=== PATIENT | female | born 1940 | race Caucasian/White ===

== ENCOUNTER 2018-05-10 13:01 | Outpatient (REF) | payer MEDICARE, SELFPAY ==
[2018-05-10 22:35] LABS: Abs Immature Grans 0.01 k/cumm (0.0-0.09); Absolute Basophil Count 0.03 k/cumm (0.0-0.2); Absolute Eosinophil Count 0.25 k/cumm (0.0-0.7); Absolute Lymphocyte Count 2.54 k/cumm (1.2-3.4); Absolute Monocyte Count 0.68 k/cumm (0.11-0.7); Absolute Neutrophil Count 3.59 k/cumm (1.2-6.7); Basophils % 0.4; Eosinophils % 3.5; HCT 44.9 % (36.0-46.0); HGB 14.6 g/dL (12.0-15.5); Immature Grans % 0.1; Lymphocytes % 35.8; Mean Corp. HGB Concentration 32.5 g/dL (32.0-36.0); Mean Corpuscular Hemoglobin 30.8 pg (27.0-33.0); Mean Corpuscular Volume 94.7 fL (80-95); Mean Platelet Volume 12.2 fL (8.0-11.0); Monocytes % 9.6; Neutrophils % 50.6; Platelet Count 192 x1000/uL (130-400); RBC 4.74 m/cumm (4.00-5.20); RBC Distribution Width 13.3 % (11.7-14.6)
[2018-05-10 22:55] LABS: BUN 9 mg/dL (7-18); CREATININE 0.93 mg/dL (0.55-1.02); Calcium 9.3 mg/dL (8.5-10.1); Chloride 103 mmol/L (98-107); Estimated GFR 58.61 (mL/min/1.73m2); Glucose 90 mg/dL (70-100); Potassium 4.5 mmol/L (3.5-5.1); Sodium 143 mmol/L (136-145)
== END 2018-05-10 13:21 ==
LOC: NCHCN 13:01
PROVIDERS: PCP Nurse Practitioner Family; Visit Provider Nurse Practitioner Family
DX: R42 Dizziness and giddiness (principal)
CPT/HCPCS: 80048; 85025

== ENCOUNTER 2018-09-28 00:17 | Outpatient (CLI) | payer MEDICARE, SELFPAY ==
--- NOTE | 2018-09-28 11:04 | DI.MAMMO_ITS ---
SYMPTOM/DIAGNOSIS: SCREENING, [facility], Z00.00 MAMMOGRAMS: Mammograms were interpreted according to the usual protocol including computer analysis with CAD system, tomosynthesis and C view imaging. Comparison is made with prior examinations. Breast density, category B. No suspicious masses or microcalcifications are seen. There has been no significant change compared to the prior examinations. IMPRESSION: No evidence for malignancy. Yearly mammography is recommended. Category 1. MQSA ASSESSMENT OF FINDINGS: Negative. Category 1. Patient will receive a letter notifying them of these results. BI-RADS category B. There are scattered areas of fibroglandular density.
== END 2018-09-28 00:37 ==
PROVIDERS: PCP Nurse Practitioner Family; Visit Provider Nurse Practitioner Family
DX: Z12.31 Encounter for screening mammogram for malignant neoplasm of breast (principal)
CPT/HCPCS: 77063; 77067

== ENCOUNTER 2019-02-01 17:54 | Outpatient (REF) | payer MEDICARE, SELFPAY ==
[2019-02-01 22:02] LABS: ALT 17 U/L (14-59); Anion Gap 8.5 mmol/L (3-11); BUN 10 mg/dL (7-18); CO2 30.5 mmol/L (21.0-32.0); CREATININE 0.92 mg/dL (0.55-1.02); Calcium 8.8 mg/dL (8.5-10.1); Chloride 103 mmol/L (98-107); Estimated GFR 59.19 (mL/min/1.73m2); Glucose 105 mg/dL (70-100); HDL Cholesterol 45 mg/dL (40-60); LDL CHOLESTEROL 84 mg/dL (<100); Potassium 4.3 mmol/L (3.5-5.1); Sodium 142 mmol/L (136-145)
[2019-02-01 22:23] LABS: Creatine Kinase 75 U/L (26-192)
== END 2019-02-01 18:14 ==
LOC: NCHCN 17:54
PROVIDERS: PCP Nurse Practitioner Family; Visit Provider Nurse Practitioner Family
DX: I10 Essential (primary) hypertension (principal); E78.5 Hyperlipidemia, unspecified; M19.90 Unspecified osteoarthritis, unspecified site
CPT/HCPCS: 80048; 80053; 82550; 83690; 83721; 83718; 84460; 85025

== ENCOUNTER 2019-07-12 15:45 | Outpatient (REF) | payer MEDICARE, SELFPAY ==
[2019-07-12 23:10] LABS: Anion Gap 9.3 mmol/L (3-11); BUN 11 mg/dL (7-18); CO2 30.7 mmol/L (21.0-32.0); CREATININE 1.01 mg/dL (0.55-1.02); Calcium 9.3 mg/dL (8.5-10.1); Chloride 103 mmol/L (98-107); Estimated GFR 53.15 (mL/min/1.73m2); Glucose 93 mg/dL (74-106); Potassium 4.3 mmol/L (3.5-5.1); Sodium 143 mmol/L (136-145)
== END 2019-07-12 16:05 ==
LOC: NCHCN 15:45
PROVIDERS: PCP Nurse Practitioner Family; Visit Provider Nurse Practitioner Family
DX: I10 Essential (primary) hypertension (principal)
CPT/HCPCS: 80048

== ENCOUNTER 2020-01-10 13:29 | Outpatient (REF) | payer MEDICARE, SELFPAY ==
[2020-01-10 19:56] LABS: ALT 15 U/L (14-59); AST 14 U/L (15-37); HDL Cholesterol 43 mg/dL (40-60); LDL CHOLESTEROL 68 mg/dL (<100)
[2020-01-10 20:17] LABS: Creatine Kinase 90 U/L (26-192)
== END 2020-01-10 13:49 ==
LOC: NCHCN 13:29
PROVIDERS: PCP Nurse Practitioner Family; Visit Provider Nurse Practitioner Family
DX: E78.5 Hyperlipidemia, unspecified (principal); I10 Essential (primary) hypertension
CPT/HCPCS: 82550; 83721; 83718; 84450; 84460

== ENCOUNTER 2020-01-24 07:50 | Emergency (ER) | payer MEDICARE, SELFPAY ==
[2020-01-24] VITALS (13 sets, daily range): BP systolic 134–183; BP diastolic 57–82; PULSE 94–116; RESP 17–22; TEMP 36.3–36.8; O2SAT 92–100
--- NOTE | 2020-01-24 08:15 | RT.EKG_ITS ---
APPROVED REPORT Exam: Resting ECG Patient Location: E HR:101 bpm ECG Measurements Heart Rate 101 AXIS MO 156 P 83 QRSd 121 QRS -48 QT 373 T 102 QTc 485 Conclusion Sinus tachycardia...rate> 99 Left bundle branch block...QRSd>120, broad/notched R
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
[2020-01-24] MEDS: ACETAMINOPHEN 1,000 MG/100 ML BTL 400 MG IVPB (08:34)
[2020-01-24] MEDS: Normal Saline 500 ML IV (08:34)
[2020-01-24 08:41] LABS: Abs Immature Grans 0.05 10^3/uL (0.0-0.06); Absolute Basophil Count 0.04 10^3/uL (0.0-0.2); Absolute Eosinophil Count 0.14 10^3/uL (0.0-0.7); Absolute Lymphocyte Count 1.76 10^3/uL (1.2-3.4); Absolute Monocyte Count 0.62 10^3/uL (0.1-0.8); Absolute Neutrophil Count 5.91 10^3/uL (1.2-6.7); Basophils % 0.5; Eosinophils % 1.6; HGB 13.7 g/dL (11.2-15.7); Immature Grans % 0.6; Lymphocytes % 20.7; MCH 29.9 pg (27.0-33.0); MCHC 31.1 % (32.0-36.0); MCV 96.1 fL (80-95); Monocytes % 7.3; Neutrophils % 69.3; Nucleated RBC 0 %; Platelet Count 174 10^3/uL (130-400); RBC 4.58 10^6/uL (3.93-5.22); RDW 12.4 % (11.7-14.6); RDW-SD 44.3 fL; WBC 8.52 10^3/uL (4.4-10.8)
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
[2020-01-24 08:53] LABS: PTT Activated 25.3 sec (21.0-31.4)
[2020-01-24 08:54] LABS: ALT 15 U/L (14-59); AST 24 U/L (15-37); Albumin 3.5 g/dL (3.4-5.0); Alkaline Phosphatase 87 U/L (46-116); Anion Gap 5.1 mmol/L (3-11); BUN 9 mg/dL (7-18); Bilirubin, Total 0.4 mg/dL (0.2-1.0); CO2 31.9 mmol/L (21.0-32.0); CREATININE 0.91 mg/dL (0.55-1.02); Chloride 103 mmol/L (98-107); Estimated GFR 59.79 (mL/min/1.73m2); Glucose 107 mg/dL (74-106); Lipase 64 U/L (73-393); Magnesium 2.2 mg/dL (1.8-2.4); Potassium 3.6 mmol/L (3.5-5.1); Sodium 140 mmol/L (136-145); Total Protein 6.8 g/dL (6.4-8.2); Troponin I < 0.05 ng/mL (<0.06)
[2020-01-24] MEDS: Omnipaque 350 MG/ML 100 ML BTL IJ (09:24)
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
[2020-01-24] MEDS: oxyCODONE 5 MG TAB PO (10:31)
== END 2020-01-24 12:00 | disposition home or self-care (01) ==
PROVIDERS: Emergency Provider Physician Assistant; PCP Nurse Practitioner Family
DX: S12.690A Other displaced fracture of seventh cervical vertebra, initial encounter for closed fracture (principal); S22.42XA Multiple fractures of ribs, left side, initial encounter for closed fracture; S20.212A Contusion of left front wall of thorax, initial encounter; R10.12 Left upper quadrant pain; R10.31 Right lower quadrant pain; M54.6 Pain in thoracic spine; M25.552 Pain in left hip; V43.52XA Car driver injured in collision with other type car in traffic accident, initial encounter; I10 Essential (primary) hypertension; H40.9 Unspecified glaucoma
CPT/HCPCS: 36415; 74177; 80053; 83690; 93005; 96361; 96365; 99285; 70450; 71260; 72125; 83735; 84484; 85025; 85610; 85730; 93010; J0131; J3490; L0120

== ENCOUNTER 2020-05-23 11:48 | Outpatient (REF) | payer MEDICARE, SELFPAY ==
[2020-05-23 15:41] LABS: Hemoglobin A1C 5.7 % (<5.7)
== END 2020-05-23 12:08 ==
LOC: NCHCN 11:48
PROVIDERS: PCP Nurse Practitioner Family; Visit Provider Nurse Practitioner Family
DX: R73.01 Impaired fasting glucose (principal)
CPT/HCPCS: 83036

== ENCOUNTER 2020-05-29 10:52 | Outpatient (RCR) | payer MEDICARE, SELFPAY ==
--- NOTE | 2020-05-29 12:45 | HOLTER_ITS ---
APPROVED REPORT Exam Type: HOLTER MONITOR APPLICATION Reason for Test: tachycardia Patient Location: O Conclusion This is a 24-hour Holter monitor ordered for indication of tachycardia. The patient was in normal sinus rhythm with majority of the recording with an average heart rate of 8 8 bpm. There were 5 episodes of supraventricular tachycardia with the longest lasting 3 beats. There were o ccasional (1.5%) PACs. There were no episodes of ventricular tachycardia and occasional (1.6%) PVCs. There were no episodes of atrial fibrillation, no pauses greater than 3 seconds and no evidence of hi gh degree heart block. There was 1 patient diary event which was associated with normal sinus rhythm.
== END 2020-06-03 23:59 | disposition home or self-care (01) ==
LOC: RT 10:52
PROVIDERS: PCP Nurse Practitioner Family; Visit Provider Nurse Practitioner Family
DX: R00.0 Tachycardia, unspecified (principal)
CPT/HCPCS: 93225; 93226

== ENCOUNTER 2020-06-04 09:03 | Outpatient (CLI) | payer MEDICARE, SELFPAY | END 2020-06-04 09:23 | PROVIDERS: PCP Nurse Practitioner Family; Referring Provider Nurse Practitioner Family; Visit Provider Internal Medicine Cardiovascular Disease | DX: R00.0 Tachycardia, unspecified (principal); I47.1 Supraventricular tachycardia; I49.1 Atrial premature depolarization | CPT/HCPCS: 93227 ==

== ENCOUNTER 2020-06-13 11:52 | Outpatient (REF) | payer MEDICARE, SELFPAY ==
[2020-06-13 16:41] LABS: Anion Gap 8.7 mmol/L (3-11); BUN 14 mg/dL (7-18); CO2 31.3 mmol/L (21.0-32.0); CREATININE 0.8 mg/dL (0.55-1.02); Calcium 9.5 mg/dL (8.5-10.1); Chloride 102 mmol/L (98-107); Glucose 107 mg/dL (74-106); Potassium 4.1 mmol/L (3.5-5.1); Sodium 142 mmol/L (136-145); TSH 0.56 uIU/mL (0.36-3.74)
[2020-06-14 04:42] LABS: Vitamin D 25 Total 13.4 ng/ml (30-100)
== END 2020-06-13 11:53 | disposition home or self-care (01) ==
LOC: NCHCN 11:52
PROVIDERS: PCP Nurse Practitioner Family; Visit Provider Nurse Practitioner Family
DX: I10 Essential (primary) hypertension (principal); R00.0 Tachycardia, unspecified; E55.9 Vitamin D deficiency, unspecified; S22.49XA Multiple fractures of ribs, unspecified side, initial encounter for closed fracture
CPT/HCPCS: 80048; 82306; 84443

== ENCOUNTER 2020-06-22 00:57 | Outpatient (CLI) | payer MEDICARE, SELFPAY ==
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
== END 2020-06-22 00:58 ==
LOC: DI 00:58
PROVIDERS: PCP Nurse Practitioner Family; Visit Provider Nurse Practitioner Family
DX: S22.42XD Multiple fractures of ribs, left side, subsequent encounter for fracture with routine healing (principal); R07.81 Pleurodynia; X58.XXXD Exposure to other specified factors, subsequent encounter
CPT/HCPCS: 99204; 71046; 71100

== ENCOUNTER 2020-06-22 10:00 | Outpatient (CLI) | payer MEDICARE, SELFPAY ==
--- NOTE | 2020-06-22 10:00 | RT.EKG_ITS ---
APPROVED REPORT Exam: Resting ECG Patient Location: O HR:105 bpm ECG Measurements Heart Rate 105 AXIS KS 162 P 86 QRSd 123 QRS -53 QT 362 T 97 QTc 479 Conclusion Sinus tachycardia...rate> 99 Left bundle branch block...QRSd>120, broad/notched R Baseline wander in lead(s) III,aVL
== END 2020-06-22 10:01 | disposition home or self-care (01) ==
LOC: DI.CARD 10:01
PROVIDERS: PCP Nurse Practitioner Family; Visit Provider Internal Medicine Cardiovascular Disease
DX: R00.0 Tachycardia, unspecified (principal); I44.7 Left bundle-branch block, unspecified
CPT/HCPCS: 93010

== ENCOUNTER 2020-06-28 00:59 | Outpatient (CLI) | payer MEDICARE, SELFPAY ==
--- NOTE | 2020-06-28 06:45 | DI.NM_ITS ---
APPROVED REPORT Exam: Pharmacologic Patient Location: Out-Patient Room/Bed: Stress Nurse: Sumaya Alonso RN Ordering Provider:ELLA REBOLLAR, Contact Number: BMI: 22.45 Baseline Rhythm: LBBB Indications: Tachycardia, SOB. Medical History Medical History: LBBB, HTN, HLD, Tobacco use, Bronchitis, Palpitations, Glaucoma Cardiac Medications: Pravastatin, Nitro, Metoprolol tartrate, Lisinopril, Aspirin, Allergies: Atorvastatin. Cardiac Risk Factors: HTN, Hyperlipidemia, Smoking (current) Previous Cardiac Procedures: None. Pretest Chest Pain Characteristics: None. Exercise History: Sedentary Lung Sounds: Diminished. Heart Sounds: Regular Stress Test Details Test: Pharmacologic stress testing performed using 0.4 mg of regadenoson per 5 mL given IV over 10 s econds. Reason for pharmacologic stress test: LBBB. Nuclear Acquisition: Rest Tc-99m/Stress Tc-99m 1 day Rest Isotope: Tc-99m Sestamibi. Dose: 9.7 Date: 06/28/2020 Injection Time: 0820 Stress Isotope: Tc-99m Sestamibi. Dose: 31.2 Date: 06/28/2020 Injection Time: 1000 HR Resting HR Supine: 69 bpm Max Heart Rate (APMHR): 142 bpm Target HR (85% APMHR): 120 bpm Max HR Achieved: 103 bpm % of APMHR: 72 BP ECG Resting ECG: Sinus Rhythm, LBBB Ectopy: None. Stress ECG: Sinus Tachycardia, LBBB ST Change: No significant ST segment changes noted Arrhythmia: None Recovery ECG: Sinus Rhythm, LBBB Recovery ST Change: No significant ST segment changes noted Recovery Arrhythmia: None Clinical Rate Pressure Product: 0 Stress ECG Conclusion 1. The electrocardiogram showed a left bundle branch block. Patient underwent pharmacologic stress w ith regadenoson. Electrocardiographically the test was nondiagnostic due to resting EKG abnormalitie s and inadequate heart rate. Peak heart rate was 72% of predicted for age. There were no dysrhythmi as Stress Test Summary STAGE HR BP Symptoms NOTES Supine 69 112/64 1 min post Lexiscan injection 82 118/68 Coughing. 3 min post Lexiscan injection 100 114/70 Headache. 6 min post Lexiscan injection 95 118/66 Symptoms resolved. MPI Conclusion Normal myocardial perfusion without evidence of ischemia or prior infarction. Calculated EF is 42%
[2020-06-28] MEDS: Regadenoson 0.4 MG/5 ML SYR IVP (09:48)
== END 2020-06-28 01:00 ==
LOC: DI 01:00
PROVIDERS: PCP Nurse Practitioner Family; Visit Provider Internal Medicine Cardiovascular Disease
DX: R00.0 Tachycardia, unspecified (principal); R06.02 Shortness of breath; R00.2 Palpitations; I10 Essential (primary) hypertension; E78.5 Hyperlipidemia, unspecified; Z72.0 Tobacco use
CPT/HCPCS: 78452; 93016; 93018; 93017; J2785

== ENCOUNTER → 2020-07-04 14:03 | Outpatient (CLI) | payer MEDICARE, SELFPAY ==
--- NOTE | 2020-07-04 12:03 | DI.CT_ITS ---
EXAM: CT HEAD WO CLINICAL HISTORY: HEAD INJURY Z87.828, FALL YESTERDAY HIT HEAD S.T. SWELLING, R/O ACUTE. TECHNIQUE: Imaging Protocol: Axial computed tomography images with coronal and sagittal reformatted images were created and reviewed COMPARISON: CT CT HEAD CERVICAL SPINE WO from 01/24/2020 FINDINGS: Ventricles and Extra axial spaces: Normal in size and morphology for the patient's age. Hemorrhage: None. Cerebral parenchyma: There are areas of decreased attenuation in the white matter most consistent wit h chronic microvascular ischemic change. No evidence of an acute territorial infarct. Midline shift: None. Brainstem/Cerebellum: Normal. Calvarium: Normal. Visualized Paranasal sinuses/Mastoids: Clear. Soft Tissues: Small scalp hematoma overlying the left parietal bone. IMPRESSION: 1. No acute intracranial process. 2. Small scalp hematoma overlying the left parietal bone. RADIATION DOSE DELIVERED: 600.63mGy.cm Total DLP DATA REPOSITORY: All CT scans at this facility are submitted to the National Radiology Data Registry (NRDR) Dose Index Registry (DIR) with the [employer] (ACR). RADIATION OPTIMIZATION: All CT scans at this facility use at least one of these dose optimization te chniques: automated exposure control; mA and/or kV adjustment per patient size (includes targeted exa ms where dose is matched to clinical indication); or iterative reconstruction.
== END ==
PROVIDERS: PCP Nurse Practitioner Family; Visit Provider Nurse Practitioner Family
DX: S00.03XA Contusion of scalp, initial encounter (principal); R22.0 Localized swelling, mass and lump, head
CPT/HCPCS: 70450

== ENCOUNTER → 2020-07-12 01:32 | Outpatient (CLI) | payer MEDICARE, SELFPAY ==
--- NOTE | 2020-07-12 11:37 | DI.US_ITS ---
APPROVED REPORT EXAM: Comprehensive 2D, Doppler, and color-flow Echocardiogram Patient Location: Out-Patient Charge Manager: Deepti Tang RDCS ([facility]) Other Information Study Quality: Technically Difficult. Technically limited study due to body habitus, smoker.. Conclusion This is a technically difficult study. Left Ventricle : The left ventricle is grossly normal size. Left ventricular systolic function is mil dly decreased. Unable to assess LV wall thickness. LVEF is 40-45%. Right Ventricle : Right ventricle is grossly normal in size. Right ventricular systolic function is g rossly normal. The RVSP is 18.1 mmHg. Atria : The left atrium size is normal. The right atrium size is normal. Right atrium is borderline d ilated. Mitral Valve : Mild mitral annular calcification. Mild mitral regurgitation. No evidence of mitral va lve stenosis. Great Vessels : The aortic root is not well visualized. Ascending aorta is not well visualized. Aorti c arch is not well visualized. IVC is normal in size and collapses >50% with inspiration. Please see remainder of study for further details. Wall motion Left Ventricle The left ventricle is grossly normal size. Left ventricular systolic function is mildly decreased. Un able to assess LV wall thickness. There is global hypokinesis of the left ventricle. There is no vent ricular septal defect visualized. LVEF is 40-45%. Right Ventricle Right ventricle is grossly normal in size. Right ventricular systolic function is grossly normal. The RVSP is 18.1 mmHg. Atria The left atrium size is normal. The right atrium size is normal. Right atrium is borderline dilated. The interatrial septum is intact with no evidence for an atrial septal defect. Aortic Valve Aortic valve is trileaflet. The aortic valve is not well visualized. There is no aortic valvular sten osis. No aortic regurgitation is present. Mitral Valve Mild mitral annular calcification. No evidence of mitral valve stenosis. Mild mitral regurgitation. Tricuspid Valve The tricuspid valve is normal in structure. There is no tricuspid valve stenosis. Trace tricuspid reg urgitation. Pulmonic Valve Pulmonic valve is not well visualized. There is no pulmonic valvular stenosis. There is no pulmonic v alvular regurgitation. Great Vessels The aortic root is not well visualized. Ascending aorta is not well visualized. Aortic arch is not we ll visualized. IVC is normal in size and collapses >50% with inspiration. Pericardium There is no pericardial effusion. 2D Dimensions RA Area A4C 9.37 cm2 LV Vol A2C d MOD 74.9 mL RA Vol/ BSA A4C s A-L 13.4 mL/m2 LV Vol A4C d MOD 61.3 mL LVEF ([place]) 44.01 % F: 54 - 74 LA vol/ BSA A2C s A-L 24.8 mL/m2 LV Volume 58.50 mL F: 46 - 106 LA vol/ BSA A4C s A-L 15.2 mL/m2 LV Volume Index 40.06 mL/m2 F: 29 - 61 LA Vol/ BSA Biplane s A-L 20.5 mL/m2 LV Vol Biplane MOD 69.4 mL LA Area A4C s MOD 10.09 cm2 LA Area A2C s MOD 13.61 cm2 LV EF A4C MOD 41.0 % LV EF A2C MOD 45.3 % LV EF Biplane MOD 44.0 % SV 30.56 mL SV Index 20.92 mL/m2 LV Diastology E/A Ratio 0.6 MV E Vmax 0.67 (0.4-1.3 m/s) MV A Vmax 1.10 (0.4-1.3 m/s) MV E/A Ratio 0.59 Aortic Valve LVOT Vmax 0.74 m/s LVOT Mean Michael. 0.48 m/s LVOT Peak Grad 2.2 mmHg LVOT Mean Grad 1.1 mmHg LVOT VTI 0.165 m AoV Vmax 1.11 m/s Velocity Ratio 0.66 AoV Mean Michael. 0.80 m/s AoV Peak Grad 5.0 mmHg AoV Mean Grad 2.8 mmHg AoV VTI 0.245 m Mitral Valve MV DT 304 (160-240 msec) MV PHT 88 msec MV Area PHT 2.50 cm2 MV VTI 0.293 m MV VTI Annulus 0.296 m Pulmonary Valve PV Vmax 0.88 (0.5-1.5 m/s) RVOT Peak Gr. 2.46 mmHg PV Peak Grad 3.1 mmHg RVOT Mean Gr. 1.10 mmHg PV Mean Grad 1.9 mmHg RVOT VTI 0.141 m PV VTI 0.189 m RVOT Vmax 0.78 m/s Tricuspid Valve TR Peak Grad 15.1 mmHg TR Vmax 1.94 m/s RA Pressure 3.00 mmHg RVSP (TR) 18.1 mmHg
== END ==
PROVIDERS: PCP Nurse Practitioner Family; Visit Provider Internal Medicine Cardiovascular Disease
DX: R00.0 Tachycardia, unspecified (principal); I34.0 Nonrheumatic mitral (valve) insufficiency
CPT/HCPCS: 93306

== ENCOUNTER → 2020-07-24 13:56 | Outpatient (BNVA) | payer MEDICARE, SELFPAY | PROVIDERS: PCP Nurse Practitioner Family; Referring Provider Nurse Practitioner Family; Visit Provider Internal Medicine Cardiovascular Disease | DX: I42.8 Other cardiomyopathies (principal); I44.7 Left bundle-branch block, unspecified; R06.02 Shortness of breath; I10 Essential (primary) hypertension | CPT/HCPCS: 99214; 99213 ==

== ENCOUNTER 2020-09-10 19:17 | Outpatient (REF) | payer MEDICARE, SELFPAY ==
[2020-09-10 17:13] LABS: Vitamin D 25 Total 16.1 ng/mL (30-100)
== END 2020-09-10 19:18 | disposition home or self-care (01) ==
LOC: NCHCN 19:17
PROVIDERS: PCP Nurse Practitioner Family; Visit Provider Nurse Practitioner Family
DX: E55.9 Vitamin D deficiency, unspecified (principal)
CPT/HCPCS: 82306

== ENCOUNTER 2020-12-10 11:31 | Outpatient (REF) | payer MEDICARE, SELFPAY ==
[2020-12-10 20:41] LABS: ALT 14 U/L (14-59); AST 16 U/L (15-37); Anion Gap 4.5 mmol/L (3-11); BUN 9 mg/dL (7-18); CO2 33.5 mmol/L (21.0-32.0); CREATININE 0.8 mg/dL (0.55-1.02); Calcium 9.4 mg/dL (8.5-10.1); Chloride 106 mmol/L (98-107); Glucose 97 mg/dL (74-106); HDL Cholesterol 43 mg/dL (40-60); LDL CHOLESTEROL 77 mg/dL (<100); Potassium 4.6 mmol/L (3.5-5.1); Sodium 144 mmol/L (136-145)
[2020-12-10 20:54] LABS: Creatine Kinase 101 U/L (26-192)
[2020-12-10 21:34] LABS: Vitamin D 25 Total 28.4 ng/mL (30-100)
== END 2020-12-10 11:32 | disposition home or self-care (01) ==
LOC: NCHCN 11:31
PROVIDERS: PCP Nurse Practitioner Family; Visit Provider Nurse Practitioner Family
DX: E55.9 Vitamin D deficiency, unspecified (principal); E78.5 Hyperlipidemia, unspecified
CPT/HCPCS: 80048; 82306; 82550; 83721; 83718; 84450; 84460

== ENCOUNTER 2020-12-27 04:08 | Outpatient (CLI) | payer MEDICARE, SELFPAY ==
[2020-12-27] MEDS: Inhaler, Assist Device 1 EACH MC (11:03)
[2020-12-27] MEDS: Albuterol HFA 18 GM 200 PUFF INH IH (11:03)
--- NOTE | 2020-12-28 11:33 | W.PFT ---
Date of service: 12/27/20 Time of Service: 10:09 Pulmonary Function Test Result Requesting Provider Ana Paula Miller Interpretation Spirometry: There is severe airflow obstruction. Low FVC is likely due to extreme airflow limitation. There was a 13 and 14% increase in FEV1 and FVC respectively with administration of a bronchodilator dilator, but does not meet criteria for a significant bronchodilator effect (less than a 200cc increase). Lung Volumes: There is evidence of hyperinflation and air trapping. Diffusion Capacity: There is a reduced diffusion. Airway Pressure: There is significantly increased airways resistance. Impression There is severe airflow limitation signs of air trapping and hyperinflation along with a reduced diffusion. Although this patient does not meet criteria for a significant bronchodilator effect due to lack of a 200 cc increase in FEV1 or FVC this has been likely limited by an extremely low FVC. In the correct clinical context these PFTs would be consistent with emphysematous COPD. Note: When compared to 05/14/2011, the FEV1 and FVC are significantly decreased and there is more air trapping and hyperinflation when compared to the previous report. Clinical Correlation therefore is recommended.
== END 2020-12-27 04:09 | disposition home or self-care (01) ==
LOC: RT 04:09
PROVIDERS: PCP Nurse Practitioner Family; Visit Provider Nurse Practitioner Family
DX: J44.9 Chronic obstructive pulmonary disease, unspecified (principal)
CPT/HCPCS: 94060; 94726; 94729

== ENCOUNTER 2021-01-01 01:22 | Outpatient (CLI) | payer MEDICARE, SELFPAY ==
--- NOTE | 2021-01-01 | DI.MAMMO_ITS ---
Exam(s) MAMMO SCREENING EXAM: MAMMO SCREENING CLINICAL HISTORY: SCREENING, Z12.39 TECHNIQUE: Bilateral full field digital CC and MLO mammographic images were obtained with 3D tomosyn thesis and utilizing computer aided detection (CAD). COMPARISON: Available for comparison. FINDINGS: Masses/Architectural Distortion: None seen. Microcalcifications: No suspicious pleomorphic-type are seen. Skin Thickening/Nipple Retraction: None. IMPRESSION: 1. No significant interval change with no specific features of malignancy noted. 2. Unless there is more urgent need, screening mammography is recommended, as per [employer] guidelines. BI-RADS Category 2 - Benign Findings Breast Density - Category B - Scattered areas of fibroglandular density Breast density category C or D implies that the patient has dense breast tissue. Dense breast tissue is very common and is not abnormal but dense breast tissue can make it harder to find cancer on a ma mmogram. Also, dense breast tissue may increase their breast cancer risk. This information about the result of the mammogram report was provided to the patient to raise their awareness. Use this report when you speak with the patient about their risks for breast cancer, which includes their family hist ory. At that time, you may recommend for more screening tests (Ultrasound or MRI) as they might be us eful based on their risk. A negative radiographic report should not delay biopsy if a dominant or clinically suspicious mass is present. Up to ten percent of cancers are not identified on mammography. A negative report may reinforce clinical impression. Adenosis and dense breasts may obscure an underlying neoplasm. False positive reports average 6 to 10%. Patient will receive a letter notifying them of these results.
== END 2021-01-01 01:42 ==
PROVIDERS: PCP Nurse Practitioner Family; Visit Provider Nurse Practitioner Family
DX: Z12.31 Encounter for screening mammogram for malignant neoplasm of breast (principal)
CPT/HCPCS: 77063; 77067

== ENCOUNTER 2021-01-09 14:38 | Outpatient (REF) | payer MEDICARE, SELFPAY ==
[2021-01-09 20:42] LABS: Anion Gap 5.9 mmol/L (3-11); BUN 8 mg/dL (7-18); CO2 32.1 mmol/L (21.0-32.0); CREATININE 0.9 mg/dL (0.55-1.02); Calcium 9.1 mg/dL (8.5-10.1); Chloride 103 mmol/L (98-107); Glucose 92 mg/dL (74-106); Potassium 4.3 mmol/L (3.5-5.1); Sodium 141 mmol/L (136-145)
== END 2021-01-09 14:39 | disposition home or self-care (01) ==
LOC: NCHCN 14:38
PROVIDERS: PCP Nurse Practitioner Family; Referring Provider Nurse Practitioner Family; Visit Provider Nurse Practitioner Family
DX: I10 Essential (primary) hypertension (principal)
CPT/HCPCS: 80048

== ENCOUNTER 2021-01-15 03:32 | Outpatient (CLI) | payer MEDICARE, SELFPAY | END 2021-01-15 03:33 | disposition home or self-care (01) | LOC: RT 03:33 | PROVIDERS: PCP Nurse Practitioner Family; Visit Provider Student in an Organized Health Care Education/Training Program | DX: J44.9 Chronic obstructive pulmonary disease, unspecified (principal) | CPT/HCPCS: 94618; G0237 ==

== ENCOUNTER 2021-01-16 13:10 | Outpatient (REF) | payer MEDICARE, SELFPAY ==
[2021-01-16 21:33] LABS: Anion Gap 5.3 mmol/L (3-11); BUN 16 mg/dL (7-18); CO2 34.7 mmol/L (21.0-32.0); Chloride 99 mmol/L (98-107); Estimated GFR 53.48 (mL/min/1.73m2); Glucose 92 mg/dL (74-106); Potassium 4.3 mmol/L (3.5-5.1); Sodium 139 mmol/L (136-145)
== END 2021-01-16 13:11 | disposition home or self-care (01) ==
LOC: NCHCN 13:10
PROVIDERS: PCP Nurse Practitioner Family; Visit Provider Nurse Practitioner Family
DX: I10 Essential (primary) hypertension (principal)
CPT/HCPCS: 80048

== ENCOUNTER 2021-01-22 00:20 | Outpatient (CLI) | payer MEDICARE, SELFPAY ==
--- NOTE | 2021-01-22 07:15 | DI.CTLCSR_ITS ---
Exam(s) CT CHEST LUNG CANCER SCREEN EXAM: CT CHEST LUNG CANCER SCREEN CLINICAL HISTORY: Screening for lung cancer,CURRENT SMOKER,F17.210 TECHNIQUE: Imaging Protocol: Axial computed tomography images with coronal and sagittal reformatted images were created and reviewed COMPARISON: CT CT CHEST/ABD/PEL W from 01/24/2020 FINDINGS: Tracheobronchial tree: Patent where visualized. Mediastinum and Rosalinda: No dominant adenopathy or fluid collection. Small hiatal hernia. Pulmonary parenchyma: No consolidation or dominant measurable mass. No architectural distortion. Lung Nodules: None. Pleura: No effusion or pneumothorax. Heart: The heart is not dilated. Mild coronary artery calcification. No pericardial effusion. Calci fication of the mitral valve. Aorta: Thoracic aorta non-dilated.Moderate atherosclerosis. Upper abdomen: Unremarkable. Bones: Within normal limits. Mild reverse S-type thoracolumbar scoliosis. Soft Tissues: Unremarkable. IMPRESSION: No pulmonary nodules. Lung RADS Cat 1 - Negative: No nodules and definitely benign nodules Lung-RADS 1.0 CATEGORIES: Category 0 - Prior chest CT exam(s) being located for comparison. Category 1 - Annual screening in 12 months. No nodules or definitely benign nodules. Category 2 - Annual screening in 12 months. Benign appearance. Nodules with low likelihood of becomin g active cancer. Category 3 - 6-month follow-up. Probably benign. Short-term follow-up suggested. Nodules with low lik elihood of becoming active cancer. Category 4A - 3-month follow-up and CT/PET if >8 mm in size. Suspicious finding. Findings which requi re additional testing. Category 4B - Findings which require additional testing and tissue sampling. Modifier S- Potentially clinically significant findings (non lung cancer) RADIATION DOSE DELIVERED: 68.72mGy.cm Total DLP CTDIvol DATA REPOSITORY: All CT scans at this facility are submitted to the National Radiology Data Registry (NRDR) Dose Index Registry (DIR) with the [employer] (ACR). RADIATION OPTIMIZATION: All CT scans at this facility use at least one of these dose optimization te chniques: automated exposure control; mA and/or kV adjustment per patient size (includes targeted exa ms where dose is matched to clinical indication); or iterative reconstruction.
== END 2021-01-22 00:40 ==
PROVIDERS: PCP Nurse Practitioner Family; Visit Provider Student in an Organized Health Care Education/Training Program
DX: F17.210 Nicotine dependence, cigarettes, uncomplicated (principal); Z12.2 Encounter for screening for malignant neoplasm of respiratory organs
CPT/HCPCS: 71271

== ENCOUNTER 2021-08-12 19:56 | Outpatient (REF) | payer MEDICARE, SELFPAY ==
[2021-08-12 13:58] LABS: Abs Immature Grans 0.02 10^3/uL (0.0-0.06); Absolute Basophil Count 0.06 10^3/uL (0.0-0.2); Absolute Lymphocyte Count 2.72 10^3/uL (1.2-3.4); Absolute Monocyte Count 0.92 10^3/uL (0.1-0.8); Absolute Neutrophil Count 6.22 10^3/uL (1.2-6.7); Basophils % 0.6; Eosinophils % 2.9; HCT 39.3 % (36.0-46.0); HGB 12.6 g/dL (11.2-15.7); Immature Grans % 0.2; Lymphocytes % 26.6; MCH 31.7 pg (27.0-33.0); MCHC 32.1 % (32.0-36.0); Neutrophils % 60.7; Nucleated RBC 0 %; Platelet Count 211 10^3/uL (130-400); RBC 3.97 10^6/uL (3.93-5.22); RDW 11.9 % (11.7-14.6); RDW-SD 44.1 fL; WBC 10.24 10^3/uL (4.4-10.8)
[2021-08-12 14:02] LABS: ESR 20 mm/hr (0-30)
[2021-08-12 14:12] LABS: Hemoglobin A1C 5.9 % (<5.7)
[2021-08-12 14:56] LABS: ALT 17 U/L (14-59); AST 14 U/L (15-37); Albumin 3.6 g/dL (3.4-5.0); Alkaline Phosphatase 81 U/L (46-116); Anion Gap 5.8 mmol/L (3-11); BUN 21 mg/dL (7-18); Bilirubin, Total 0.4 mg/dL (0.2-1.0); C-Reactive Protein 0.08 mg/dL (0.0-0.3); CO2 32.2 mmol/L (21.0-32.0); CREATININE 1.4 mg/dL (0.55-1.02); Calcium 9.1 mg/dL (8.5-10.1); Chloride 98 mmol/L (98-107); Estimated GFR 36.27 (mL/min/1.73m2); Glucose 95 mg/dL (74-106); Potassium 4.2 mmol/L (3.5-5.1); Sodium 136 mmol/L (136-145); TSH 0.73 uIU/mL (0.36-3.74); Total Protein 6.6 g/dL (6.4-8.2)
[2021-08-14 12:27] LABS: IgA 140 mg/dL (85-499); Interpretation (See Note); Tissue Transglutaminase IgA <1.2 U/mL (<4.0)
== END 2021-08-12 19:57 | disposition home or self-care (01) ==
LOC: NCHCN 19:56
PROVIDERS: PCP Nurse Practitioner Family; Visit Provider Nurse Practitioner Family
DX: R19.7 Diarrhea, unspecified (principal); R63.4 Abnormal weight loss
CPT/HCPCS: 80053; 82784; 83516; 85652; 83036; 84443; 85025; 86140

== ENCOUNTER → 2021-08-20 12:59 | Outpatient (BNVA) | payer MEDICARE, SELFPAY | PROVIDERS: PCP Nurse Practitioner Family; Referring Provider Nurse Practitioner Family; Visit Provider Internal Medicine Cardiovascular Disease | DX: J43.2 Centrilobular emphysema (principal); I44.7 Left bundle-branch block, unspecified; I42.8 Other cardiomyopathies | CPT/HCPCS: 99213 ==

== ENCOUNTER 2021-09-24 11:37 | Emergency (ER) | payer MEDICARE, SELFPAY ==
[2021-09-24] VITALS (29 sets, daily range): BP systolic 80–171; BP diastolic 40–107; PULSE 66–135; RESP 11–21; TEMP 37; O2SAT 93–99
--- NOTE | 2021-09-24 11:45 | RT.EKG_ITS ---
APPROVED REPORT Exam: Resting ECG Reason for Exam: tachycardia, weakness Patient Location: E HR:71 bpm ECG Measurements Heart Rate 71 AXIS SC 136 P 32 QRSd 142 QRS -36 QT 466 T 85 QTc 506 Conclusion Sinus rhythm...normal P axis, V-rate 60- 99 Left bundle branch block...QRSd>120, broad/notched R
--- NOTE | 2021-09-24 12:15 | DI.CT_ITS ---
Exam(s) CT ABDOMEN PELVIS WO EXAM: CT ABDOMEN PELVIS WO INDICATION: melena, diarrhea x 2mo, fatigue. COMPARISON: CT CT CHEST/ABD/PEL W from 01/24/2020 TECHNIQUE: FINDINGS: CT examination of the abdomen and pelvis was performed with oral contrast only. Images obtained through the lung bases are unremarkable. The liver is unremarkable in appearance. Gallbladder and bile ducts are CT normal. Pancreas appears normal. Spleen is unremarkable in appearance. Adrenals appear normal. The kidneys are unremarkable with no evidence of hydronephrosis, nephrolithiasis, or renal mass.. Ur inary bladder unremarkable. Abdominal aorta is of normal diameter and no major vascular abnormality is seen. No abdominal wall hernia. No abdominal or pelvic adenopathy. PHOTOCOPIER TECHNICIAN structures appear intact. Appendix is normal. No evidence of diverticulitis or bowel obstruction. IMPRESSION: Negative CT examination of the abdomen and pelvis. RADIATION DOSE DELIVERED: 654.18mGy.cm Total DLP 654.18mGy.cm Total DLP !Error CTDIvol RADIATION OPTIMIZATION: All CT scans at this facility use at least one of these dose optimization te chniques: automated exposure control; mA and/or kV adjustment per patient size (includes targeted exa ms where dose is matched to clinical indication); or iterative reconstruction.
--- NOTE | 2021-09-24 12:36 | ED.GENADUL_ITS ---
Discharge Plan Disposition Patient Disposition: HOME Condition: Stable Discharge Details Clinical Impression: Hypovolemia, Diarrhea, Acute kidney injury Primary Care Provider: Ana Paula Miller ED Provider: Rc Nguyen Home Meds and New Rx's Prescriptions: Continued lisinopril-hydrochlorothiazide 20-25 mg tablet 1 tab PO DAILY omeprazole 20 mg capsule,delayed release(DR/EC) 20 mg PO DAILY atorvastatin 10 mg tablet 10 mg PO DAILY ferrous sulfate 325 mg (65 mg iron) tablet 325 mg PO DAILY acetaminophen-codeine 300-30 mg tablet 1 tab PO QHS PRN nitroglycerin [Nitrostat] 0.4 mg tablet, sublingual 0.4 mg sublingual Q5M PRN Rx Instructions: do not exceed 3 doses per episode acetaminophen [Tylenol Extra Strength] 500 mg tablet 500 mg PO Q6H PRN olodaterol 2.5 mcg/actuation mist 2 inh inhalation DAILY metoprolol succinate 25 mg tablet extended release 24 hr 25 mg PO .nightly Qty: 90 3RF Stiolto Respimat 2.5-2.5 mcg/actuation mist See Rx Instructions .ROUTE .COMPLEX Qty: 4 12RF Dose Instruction: INHALE 2 PUFFS BY MOUTH DAILY Rx Instructions: INHALE 2 PUFFS BY MOUTH DAILY buspirone 10 MG tablet 10 mg PO TID aspirin [Aspirin Low-Strength] 81 MG tablet,chewable 81 mg PO DAILY albuterol sulfate [Ventolin HFA] 200 PUFF HFA aerosol inhaler 200 puff Inhalation .Q4-6H PRN travoprost [Travatan Z] 2.5 ML drops 1 drp Ophthalmic HS dorzolamide 10 ML drops 1 drp Ophthalmic BID Held spironolactone 25 mg tablet 12.5 mg PO DAILY Qty: 90 3RF Hold Instructions: Resume on 10/01/21. hold until cleared by doctor Discharge Instructions Instructions: Dehydration (ED), Chronic Diarrhea (ED) Additional Instructions: Please drink plenty of fluid to stay hydrated. Please follow-up with gastroenterology as directed by your primary care physician. Please follow-up with your primary care physician. Call tomorrow to schedule timely follow-up. Return to the emergency [facility] immediately for any worsening or new concerning symptoms. Referrals: Ana Paula iMller [Primary Care Provider] - Discharge Data Discharge Date/Time-TO BE ENTERED AT DEPARTURE: 09/24/21 17:27 Medical Decision Making 1240 --81-year-old female chronic smoker, COPD,here with generalized weakness, diarrhea times months, has had melena with guaiac positive stool weeks ago. Patient was seen at primary care physician this morning and was found to be hypotensive. Patient is currently normotensive. She does appear cachectic and dehydrated. Consider electrolyte abnormalities. Plan to give IV fluid bolus. Given chronic diarrhea and guaiac positive stool a few weeks ago, consider intra-abdominal process including colitis and malignancy. Patient is tender left lower quadrant. Plan to obtain CT abdomen pelvis with for acute surgical process. -- CT the abdomen pelvis was interpreted by radiology: Negative. -- Labs reviewed and BRUCE noted with creatinine 2.3. BUN significantly elevated. These findings are likely related to hypovolemia. Patient was given initial IV fluid bolus 500 mL. We will continue additional 1 L of IV fluid bolus and reassess chemistry. -- Patient was given initial IV NS bolus and labs repeated and has had improvement in creatinine. Plan for continued oral rehydration and follow-up with PCP and gastroenterology as directed. Patient was reassessed and feeling much better. Able to ambulate. Hemodynamically stable. Usual customary discharge instructions reviewed with patient. I will have her hold spironolactone over the next week until able to be reassessed by PCP. HPI General Mode of arrival: ambulatory . Date/Time Provider Initiated Documentation: 09/24/21 11:51 . Limitations to Documentation: no limitations . Information obtained by: patient . HPI Narrative: 81-year-old female with history of nicotine dependence, COPD, left bundle branch block, presents from primary care clinic with concerns for generalized weakness and hypotension today in clinic. Patient was found to be guaiac +6 weeks ago and was referred to gastroenterology and unfortunately could not arrange for rotation. She notes she has had black stool in the past but currently stool is yellow. She does note she is been suffering from fairly persistent diarrhea over the past few months. She does note some associated intermittent abdominal discomfort. Patient denies fever or cough. She is not vaccinated against COVID. Patient notes she has not been eating or drinking as much as usual. Related Data Home Medications Medication Instructions Recorded Confirmed buspirone 10 mg tablet 10 mg PO TID 12/11/14 09/24/21 albuterol sulfate 90 mcg/actuation 200 puff inhalation .Q4-6H PRN 05/30/16 09/24/21 aerosol inhaler (Ventolin HFA) aspirin 81 mg chewable tablet 81 mg PO DAILY 05/30/16 09/24/21 (Aspirin Low-Strength) dorzolamide 2 % eye drops 1 drp ophthalmic (eye) BID 05/30/16 09/24/21 travoprost 0.004 % eye drops 1 drp ophthalmic (eye) HS 05/30/16 09/24/21 (Travatan Z) nitroglycerin 0.4 mg sublingual 0.4 mg sublingual Q5M PRN 05/31/20 09/24/21 tablet (Nitrostat) spironolactone 25 mg tablet 12.5 mg PO DAILY #90 tabs 09/11/20 09/24/21 acetaminophen 500 mg tablet 500 mg PO Q6H PRN 12/12/20 09/24/21 (Tylenol Extra Strength) olodaterol 2.5 mcg/actuation mist 2 inh inhalation DAILY 12/12/20 09/24/21 for inhalation metoprolol succinate 25 mg 25 mg PO .nightly #90 tabs 08/05/21 09/24/21 tablet,extended release 24 hr tiotropium 2.5 mcg-olodaterol 2.5 See Rx Instructions .Route 08/07/21 09/24/21 mcg/actuation mist for inhalation .COMPLEX #4 grams (Stiolto Respimat) acetaminophen 300 mg-codeine 30 mg 1 tab PO QHS PRN 08/20/21 09/24/21 tablet atorvastatin 10 mg tablet 10 mg PO DAILY 08/20/21 09/24/21 ferrous sulfate 325 mg (65 mg 325 mg PO DAILY 08/20/21 09/24/21 iron) tablet lisinopril 20 1 tab PO DAILY 08/20/21 09/24/21 mg-hydrochlorothiazide 25 mg tablet omeprazole 20 mg capsule,delayed 20 mg PO DAILY 08/20/21 09/24/21 release Previous Rx's Medication Instructions Recorded spironolactone 25 mg tablet 12.5 mg PO DAILY #90 tabs 09/11/20 metoprolol succinate 25 mg 25 mg PO .nightly #90 tabs 08/05/21 tablet,extended release 24 hr tiotropium 2.5 mcg-olodaterol 2.5 See Rx Instructions .Route 08/07/21 mcg/actuation mist for inhalation .COMPLEX #4 grams (Stiolto Respimat) Allergies Allergy/AdvReac Type Severity Reaction Status Date / Time fluticasone Allergy Intermediate Verified 08/20/21 13:15 [From Flovent HFA] atorvastatin [From Lipitor] Allergy Verified 08/20/21 13:15 General Stated Complaint: GI Bleed HUONG: 2 Review of Systems All systems reviewed & are unremarkable except as noted in HPI and below Constitutional Constitutional: Reports fatigue, Denies fever(s), Reports lethargy and Reports weakness Respiratory Respiratory: Denies cough Neurologic Neurologic: Reports weakness Endocrine Endocrine: Reports fatigue PFSH All Active Problems (Updated 09/24/21 @ 17:11 by Rc Nguyen MD) Hypovolemia (Acute) Diarrhea (Acute) Acute kidney injury (Acute) Nicotine dependence, cigarettes, uncomplicated (Acute) COPD (chronic obstructive pulmonary disease) (Chronic) LBBB (left bundle branch block) (Acute) Shortness of breath (Acute) Tachycardia (Acute) Medical History Anxiety COPD (chronic obstructive pulmonary disease) Glaucoma, left eye HTN (hypertension) (~12/12/20) Hx of hyperlipidemia Neck pain Nonischemic cardiomyopathy Osteoarthritis Shoulder pain Vitamin D deficiency Surgical History History of bilateral tubal ligation History of tonsillectomy Social History Smoking/Tobacco Use Status: Current every day Smoking risk assessment performed?: Yes Alcohol Intake: never Drug use: Never Substance use type: does not use Do you feel safe at home: Yes Do you feel safe in your relationship?: Yes Exam Const General: cooperative and no acute distress Nutritional Appearance: cachectic Orientation: alert and awake HENMT Mouth: mucous membranes dry Throat: posterior oropharynx normal Eyes Conjunctivae: normal conjunctivae Sclera: normal sclerae Neck Neck: trachea midline and supple Resp Auscultation: clear to auscultation bilaterally, no rales, no rhonchi and no wheezes Cardio Rate: regular rate and not tachycardic Rhythm: regular rhythm GI Palpation: soft, not firm, no guarding, no masses, not rigid and tender in the LLQ Skin General skin exam: no rashes or lesions noted Neuro General: patient alert, patient awake, patient oriented x3 and tone normal Extrem General: no edema Psych Appearance: grossly normal Mental Status: mental status grossly normal Course Vital Signs Vital signs: Vital Signs Pulse 100 H 09/24/21 11:39 Respiratory Rate 18 09/24/21 11:39 Blood Pressure 131/40 L 09/24/21 11:39 Pulse Oximetry 95 09/24/21 11:39 Pulse 71 09/24/21 11:59 Pulse 92 H 09/24/21 11:59 Respiratory Rate 17 09/24/21 11:59 Blood Pressure 112/56 L 09/24/21 11:59 Blood Pressure Mean 66 09/24/21 11:59 Blood Pressure Position Supine 09/24/21 11:39 Pulse Oximetry 98 09/24/21 11:59 Oxygen Delivery Method Room Air 09/24/21 11:39 Oxygen Flow Rate 0 09/24/21 11:39 Lab/Test Results Lab/Test Results: Laboratory Tests Range/Units 09/24/21 09/24/21 09/24/21 11:52 11:52 11:52 WBC Cancelled RBC Cancelled Hgb Cancelled Hct Cancelled MCV Cancelled MCH Cancelled MCHC Cancelled RDW Cancelled Plt Count Cancelled MPV Cancelled Immature Gran % Cancelled Neutrophils % Cancelled Band Neutrophils % Cancelled Lymphocytes % Cancelled Atypical Lymphs % Cancelled Monocytes % Cancelled Eosinophils % Cancelled Basophils % Cancelled Metamyelocytes % Cancelled Myelocytes % Cancelled Promyelocytes % Cancelled Other Cells % Cancelled Nucleated RBC % Cancelled Absolute Neutrophils Cancelled Absolute Lymphocytes Cancelled Absolute Monocytes Cancelled Absolute Eosinophils Cancelled Absolute Basophils Cancelled RBC Morphology Cancelled Polychromasia Cancelled Hypochromasia Cancelled Poikilocytosis Cancelled Basophilic Stippling Cancelled Anisocytosis Cancelled Microcytosis Cancelled Macrocytosis Cancelled Spherocytes Cancelled Tear Drop Cells Cancelled Ovalocytes Cancelled Stomatocytes Cancelled [place] Bodies Cancelled Frederic Cells/Echinocytes Cancelled Acanthocytes (Spur) Cancelled Schistocytes Cancelled Sodium Cancelled Potassium Cancelled Chloride Cancelled Carbon Dioxide Cancelled Anion Gap Cancelled BUN Cancelled Creatinine Cancelled Estimated GFR/1.73 m2 Cancelled Glucose Cancelled Calcium Cancelled Total Bilirubin Cancelled AST Cancelled ALT Cancelled Alkaline Phosphatase Cancelled Troponin I Cancelled Total Protein Cancelled Albumin Cancelled Patient ABO/Rh Cancelled
[2021-09-24 12:41] LABS: Abs Immature Grans 0.04 10^3/uL (0.0-0.06); Absolute Basophil Count 0.02 10^3/uL (0.0-0.2); Absolute Lymphocyte Count 1.89 10^3/uL (1.2-3.4); Absolute Monocyte Count 1.13 10^3/uL (0.1-0.8); Absolute Neutrophil Count 4.46 10^3/uL (1.2-6.7); Basophils % 0.3; Eosinophils % 3.8; HCT 41.2 % (36.0-46.0); HGB 13.7 g/dL (11.2-15.7); Immature Grans % 0.5; Lymphocytes % 24.1; MCH 31.6 pg (27.0-33.0); MCHC 33.3 % (32.0-36.0); MCV 95 fL (80-95); MPV 11.4 fL (8.0-11.0); Monocytes % 14.4; Neutrophils % 56.9; Platelet Count 232 10^3/uL (130-400); RBC 4.34 10^6/uL (3.93-5.22); RDW 12.4 % (11.7-14.6); RDW-SD 43.5 fL; WBC 7.84 10^3/uL (4.4-10.8)
[2021-09-24 13:02] LABS: ALT 23 U/L (14-59); AST 27 U/L (15-37); Albumin 3.6 g/dL (3.4-5.0); Alkaline Phosphatase 70 U/L (46-116); Anion Gap 11.6 mmol/L (3-11); BUN 59 mg/dL (7-18); Bilirubin, Total 0.5 mg/dL (0.2-1.0); CO2 22.4 mmol/L (21.0-32.0); CREATININE 2.3 mg/dL (0.55-1.02); Calcium 8.9 mg/dL (8.5-10.1); Chloride 98 mmol/L (98-107); Estimated GFR 20.45 (mL/min/1.73m2); Glucose 98 mg/dL (74-106); Potassium 4.7 mmol/L (3.5-5.1); Sodium 132 mmol/L (136-145); Total Protein 7.5 g/dL (6.4-8.2); Troponin I < 50 ng/L (<or=60)
[2021-09-24] MEDS: Lactated Ringers 500 ML 1000 ML IV ×2 (15:07→15:15)
[2021-09-24 16:32] LABS: Anion Gap 7.3 mmol/L (3-11); BUN 50 mg/dL (7-18); CO2 25.7 mmol/L (21.0-32.0); CREATININE 1.9 mg/dL (0.55-1.02); Calcium 8.2 mg/dL (8.5-10.1); Chloride 100 mmol/L (98-107); Glucose 73 mg/dL (74-106); Potassium 4.4 mmol/L (3.5-5.1); Sodium 133 mmol/L (136-145)
== END 2021-09-24 17:27 | disposition home or self-care (01) ==
PROVIDERS: Emergency Provider Student in an Organized Health Care Education/Training Program; PCP Nurse Practitioner Family
DX: E86.1 Hypovolemia (principal); R19.7 Diarrhea, unspecified; N17.9 Acute kidney failure, unspecified; R53.1 Weakness; R00.0 Tachycardia, unspecified; K92.1 Melena
CPT/HCPCS: 36415; 80048; 80053; 86850; 86900; 86901; 93005; 96360; 99284; 74176; 84484; 85025; 93010

== ENCOUNTER 2021-10-02 21:03 | Outpatient (REF) | payer MEDICARE, SELFPAY ==
[2021-10-02 21:40] LABS: Anion Gap 7.5 mmol/L (3-11); BUN 9 mg/dL (7-18); CO2 29.5 mmol/L (21.0-32.0); CREATININE 1.1 mg/dL (0.55-1.02); Calcium 8.9 mg/dL (8.5-10.1); Chloride 88 mmol/L (98-107); Estimated GFR 47.91 (mL/min/1.73m2); Glucose 106 mg/dL (74-106); Potassium 4.3 mmol/L (3.5-5.1); Sodium 125 mmol/L (136-145)
== END 2021-10-02 21:04 | disposition home or self-care (01) ==
LOC: NCHCN 21:03
PROVIDERS: PCP Nurse Practitioner Family; Visit Provider Nurse Practitioner Family
DX: I95.9 Hypotension, unspecified (principal); R63.4 Abnormal weight loss
CPT/HCPCS: 80048

== ENCOUNTER 2021-10-15 12:13 | Outpatient (REF) | payer MEDICARE, SELFPAY ==
[2021-10-15 15:32] LABS: Anion Gap 5.7 mmol/L (3-11); BUN 9 mg/dL (7-18); CO2 30.3 mmol/L (21.0-32.0); Chloride 95 mmol/L (98-107); Estimated GFR 53.48 (mL/min/1.73m2); Glucose 83 mg/dL (74-106); Potassium 4.5 mmol/L (3.5-5.1); Sodium 131 mmol/L (136-145)
== END 2021-10-15 12:14 | disposition home or self-care (01) ==
LOC: NCHCN 12:13
PROVIDERS: PCP Nurse Practitioner Family; Visit Provider Nurse Practitioner Family
DX: R89.8 Other abnormal findings in specimens from other organs, systems and tissues (principal)
CPT/HCPCS: 80048

== ENCOUNTER 2021-12-04 16:20 | Outpatient (REF) | payer MEDICARE, SELFPAY ==
[2021-12-04 21:27] LABS: Anion Gap 3.5 mmol/L (3-11); BUN 18 mg/dL (7-18); CO2 33.5 mmol/L (21.0-32.0); CREATININE 1.1 mg/dL (0.55-1.02); Calcium 9.1 mg/dL (8.5-10.1); Chloride 101 mmol/L (98-107); Estimated GFR 47.91 (mL/min/1.73m2); Glucose 111 mg/dL (74-106); Potassium 4.5 mmol/L (3.5-5.1); Sodium 138 mmol/L (136-145)
== END 2021-12-04 16:21 | disposition home or self-care (01) ==
LOC: NCHCN 16:20
PROVIDERS: PCP Nurse Practitioner Family; Visit Provider Nurse Practitioner Family
DX: R79.89 Other specified abnormal findings of blood chemistry (principal)
CPT/HCPCS: 80048

== ENCOUNTER 2022-01-22 21:47 | Outpatient (REF) | payer MEDICARE, SELFPAY ==
[2022-01-27 14:44] LABS: Helicobacter pylori Ag, Feces Negative (Negative)
== END 2022-01-22 21:48 | disposition home or self-care (01) ==
LOC: LBN 21:47
PROVIDERS: PCP Nurse Practitioner Family; Visit Provider Nurse Practitioner Adult Health
DX: A04.8 Other specified bacterial intestinal infections (principal)
CPT/HCPCS: 87338

== ENCOUNTER 2022-01-27 01:54 | Outpatient (CLI) | payer MEDICARE, SELFPAY ==
[2022-01-27] MEDS: Barium Sulfate 2% W/V-Berry Smoothie 450 ML BTL PO (08:49)
[2022-01-27] MEDS: Omnipaque 350 MG/ML 500 ML BTL-Imaging package IJ (10:23)
[2022-01-27] MEDS: Normal Saline Flush 10 ML SYR IVP (10:28)
--- NOTE | 2022-01-27 10:40 | DI.CT_ITS ---
Exam(s) CT ABDOMEN PELVIS W EXAM: CT ABDOMEN PELVIS W CLINICAL HISTORY: UNINTENTIONAL WT LOSS,R63.4,DIARRHEA,R19.7. TECHNIQUE: Imaging Protocol: Axial computed tomography images with coronal and sagittal reformatted images were created and reviewed CONTRAST MATERIAL: Intravenous: Omnipaque 350 Contrast volume:67 ml Oral: yes COMPARISON: CT CT ABDOMEN PELVIS WO from 09/24/2021 FINDINGS: ABDOMEN: Lung Bases: Mitral annular calcification. Lungs clear. Liver: Normal density. No measurable mass. Gallbladder and biliary tract: No radiodense calculus or dilation. Pancreas: Normal density, no abnormal calcifications or inflammatory process. Spleen: Normal. Kidneys: Normal size, contour and axis. No radiodense stones or obstructive uropathy. No masses seen. Adrenal glands: No masses seen. Abdominal Aorta: Abdominal portion non-dilated. Atherosclerotic changes. PELVIS: Bladder: No gross wall thickening. No calculi.No focal mass. Bowel: Mild diverticulosis. No evidence of diverticulitis. No obstruction or bowel wall thickening. Peritoneal cavity: No ascites, collection or mesenteric inflammatory response. Bones: Scoliosis and degenerative changes. No compression fractures. Reproductive organs: Within normal limits. Lymph nodes: Unremarkable. Impression: Mild diverticulosis. Otherwise unremarkable CT scan of the abdomen and pelvis. RADIATION DOSE DELIVERED: 524.55mGy.cm Total DLP DATA REPOSITORY: All CT scans at this facility are submitted to the National Radiology Data Registry (NRDR) Dose Index Registry (DIR) with the [employer] ([employer]). RADIATION OPTIMIZATION: All CT scans at this facility use at least one of these dose optimization te chniques: automated exposure control; mA and/or kV adjustment per patient size (includes targeted exa ms where dose is matched to clinical indication); or iterative reconstruction.
== END 2022-01-27 02:14 ==
LOC: DI 01:55
PROVIDERS: PCP Nurse Practitioner Family; Visit Provider Nurse Practitioner Adult Health
DX: K57.30 Diverticulosis of large intestine without perforation or abscess without bleeding (principal)
CPT/HCPCS: 74177

== ENCOUNTER 2022-01-27 01:54 | Outpatient (CLI) | payer MEDICARE, SELFPAY ==
--- NOTE | 2022-01-27 06:45 | DI.CTLCSR_ITS ---
Exam(s) CT CHEST LUNG CANCER SCREEN EXAM: CT CHEST LUNG CANCER SCREEN CLINICAL HISTORY: Screening for lung cancer, CURRENT SMOKER, F17.210 TECHNIQUE: Imaging Protocol: Axial computed tomography images with coronal and sagittal reformatted images were created and reviewed. Low dose screening protocol. COMPARISON: CT CT CHEST LUNG CANCER SCREEN from 01/22/2021 FINDINGS: Tracheobronchial tree: No bronchiectasis or mucus plugging.. Mediastinum and Rosalinda: No dominant adenopathy or fluid collection. Pulmonary parenchyma: No consolidation or dominant measurable mass. Mild emphysematous changes. Lung Nodules: None. Pleura: No effusion. No pneumothorax. Heart: The heart is not dilated. Mitral valve calcifications and coronary artery calcifications are s een. Aorta: Thoracic aorta non-dilated.Arch heavily calcified. Upper abdomen: Unremarkable. Bones: Degenerative changes and scoliosis. No compression fracture. Soft Tissues: Unremarkable. IMPRESSION: No suspicious pulmonary nodules. Lung RADS Cat 1 - Negative: No nodules and definitely benign nodules Lung-RADS 1.0 CATEGORIES: Category 0 - Prior chest CT exam(s) being located for comparison. Category 1 - Annual screening in 12 months. No nodules or definitely benign nodules. Category 2 - Annual screening in 12 months. Benign appearance. Nodules with low likelihood of becomin g active cancer. Category 3 - 6-month follow-up. Probably benign. Short-term follow-up suggested. Nodules with low lik elihood of becoming active cancer. Category 4A - 3-month follow-up and CT/PET if >8 mm in size. Suspicious finding. Findings which requi re additional testing. Category 4B - Findings which require additional testing and tissue sampling. Category 4X - Category 3 or 4 nodules with additional features or imaging findings that increases the suspicion of malignancy. Modifier S- Potentially clinically significant findings (non lung cancer) RADIATION DOSE DELIVERED: 80.35mGy.cm Total DLP 1.84mGy CTDIvol DATA REPOSITORY: All CT scans at this facility are submitted to the National Radiology Data Registry (NRDR) Dose Index Registry (DIR) with the [employer] ([employer]). RADIATION OPTIMIZATION: All CT scans at this facility use at least one of these dose optimization te chniques: automated exposure control; mA and/or kV adjustment per patient size (includes targeted exa ms where dose is matched to clinical indication); or iterative reconstruction.
[2022-01-27 08:58] LABS: Anion Gap 5.6 mmol/L (3-11); BUN 21 mg/dL (7-18); CO2 33.4 mmol/L (21.0-32.0); CREATININE 1.2 mg/dL (0.55-1.02); Calcium 9.3 mg/dL (8.5-10.1); Chloride 98 mmol/L (98-107); Estimated GFR 45.76 (mL/min/1.73m2); Glucose 78 mg/dL (74-106); Potassium 3.9 mmol/L (3.5-5.1); Sodium 137 mmol/L (136-145)
== END 2022-01-27 02:14 ==
LOC: DI 01:54
PROVIDERS: PCP Nurse Practitioner Family; Visit Provider Student in an Organized Health Care Education/Training Program
DX: F17.210 Nicotine dependence, cigarettes, uncomplicated (principal); Z12.2 Encounter for screening for malignant neoplasm of respiratory organs
CPT/HCPCS: 71271; 80048

== ENCOUNTER 2022-05-21 11:21 | Outpatient (REF) | payer MEDICARE, SELFPAY ==
[2022-05-21 15:59] LABS: ALT 19 U/L (14-59); AST 21 U/L (15-37); Anion Gap 4.5 mmol/L (3-11); BUN 24 mg/dL (7-18); CO2 33.5 mmol/L (21.0-32.0); CREATININE 1.1 mg/dL (0.55-1.02); Calcium 9.1 mg/dL (8.5-10.1); Chloride 100 mmol/L (98-107); Glucose 113 mg/dL (74-106); HDL Cholesterol 56 mg/dL (40-60); LDL CHOLESTEROL 79 mg/dL (<100); Potassium 3.9 mmol/L (3.5-5.1); Sodium 138 mmol/L (136-145)
[2022-05-21 16:47] LABS: Creatine Kinase 94 U/L (26-192)
== END 2022-05-21 11:22 | disposition home or self-care (01) ==
LOC: NCHCN 11:21
PROVIDERS: PCP Nurse Practitioner Family; Visit Provider Nurse Practitioner Family
DX: I10 Essential (primary) hypertension (principal); E78.5 Hyperlipidemia, unspecified
CPT/HCPCS: 80048; 82550; 83721; 83718; 84450; 84460

== ENCOUNTER → 2022-08-19 13:34 | Outpatient (BNVA) | payer MEDICARE, SELFPAY | PROVIDERS: PCP Nurse Practitioner Family; Visit Provider Internal Medicine Cardiovascular Disease | DX: J44.9 Chronic obstructive pulmonary disease, unspecified (principal); F17.210 Nicotine dependence, cigarettes, uncomplicated; I44.7 Left bundle-branch block, unspecified; I42.8 Other cardiomyopathies | CPT/HCPCS: 99213 ==

== ENCOUNTER → 2023-04-07 10:29 | Outpatient (BNVA) | payer MEDICARE, SELFPAY | PROVIDERS: PCP Nurse Practitioner Family; Referring Provider Nurse Practitioner Family; Visit Provider Student in an Organized Health Care Education/Training Program | DX: J43.2 Centrilobular emphysema (principal); Z79.899 Other long term (current) drug therapy; F17.210 Nicotine dependence, cigarettes, uncomplicated | CPT/HCPCS: 99214 ==

== ENCOUNTER 2023-04-15 13:27 | Outpatient (REF) | payer MEDICARE, SELFPAY ==
[2023-04-15 14:25] LABS: HCT 33.8 % (36.0-46.0); MCH 31.8 pg (27.0-33.0); MCHC 32.5 % (32.0-36.0); MCV 98 fL (80-95); MPV 11.7 fL (8.0-11.0); Platelet Count 284 10^3/uL (130-400); RBC 3.46 10^6/uL (3.93-5.22); RDW 12.2 % (11.7-14.6); RDW-SD 43.9 fL; WBC 8.34 10^3/uL (4.4-10.8)
[2023-04-15 14:49] LABS: ALT 19 U/L (14-59); AST 17 U/L (15-37); Albumin 3.4 g/dL (3.4-5.0); Alkaline Phosphatase 77 U/L (46-116); Anion Gap 6.8 mmol/L (3-11); BUN 29 mg/dL (7-18); Bilirubin, Total 0.3 mg/dL (0.2-1.0); CO2 30.2 mmol/L (21.0-32.0); Calcium 9.3 mg/dL (8.5-10.1); Chloride 96 mmol/L (98-107); Estimated GFR 24.64 (mL/min/1.73m2); Glucose 105 mg/dL (74-106); Potassium 4.2 mmol/L (3.5-5.1); Sodium 133 mmol/L (136-145); Total Protein 6.8 g/dL (6.4-8.2)
== END 2023-04-15 13:28 | disposition home or self-care (01) ==
LOC: NCHCN 13:27
PROVIDERS: PCP Nurse Practitioner Family; Visit Provider Nurse Practitioner Family
DX: R63.4 Abnormal weight loss (principal)
CPT/HCPCS: 80053; 85027

== ENCOUNTER 2023-05-13 13:14 | Outpatient (REF) | payer MEDICARE, SELFPAY ==
[2023-05-13 15:39] LABS: HCT 35.2 % (36.0-46.0); HGB 11.2 g/dL (11.2-15.7); MCH 31.9 pg (27.0-33.0); MCHC 31.8 % (32.0-36.0); MCV 100 fL (80-95); MPV 11.4 fL (8.0-11.0); Platelet Count 212 10^3/uL (130-400); RBC 3.51 10^6/uL (3.93-5.22); RDW 13.4 % (11.7-14.6); RDW-SD 49.6 fL; WBC 5.81 10^3/uL (4.4-10.8)
[2023-05-13 16:00] LABS: Anion Gap 5.7 mmol/L (3-11); BUN 25 mg/dL (7-18); CO2 30.3 mmol/L (21.0-32.0); CREATININE 1.1 mg/dL (0.55-1.02); Calcium 9.2 mg/dL (8.5-10.1); Chloride 104 mmol/L (98-107); Estimated GFR 50.48 (mL/min/1.73m2); Glucose 91 mg/dL (74-106); Potassium 4.1 mmol/L (3.5-5.1); Sodium 140 mmol/L (136-145)
== END 2023-05-13 13:15 | disposition home or self-care (01) ==
LOC: NCHCN 13:14
PROVIDERS: PCP Nurse Practitioner Family; Visit Provider Nurse Practitioner Family
DX: I95.9 Hypotension, unspecified (principal)
CPT/HCPCS: 80048; 85027

== ENCOUNTER 2023-09-01 15:18 | Outpatient (REF) | payer MEDICARE, SELFPAY ==
[2023-09-01 15:10] LABS: Reticulocyte 1.1 % (0.5-2.4)
[2023-09-01 16:15] LABS: Folate 17.8 ng/mL (8.6-20.0); TSH 0.83 uIU/Ml (0.36-3.74); Vitamin B12 1221 pg/mL (193-986)
== END 2023-09-01 15:19 | disposition home or self-care (01) ==
LOC: NCHCN 15:18
PROVIDERS: PCP Nurse Practitioner Family; Visit Provider Nurse Practitioner Family
DX: R89.9 Unspecified abnormal finding in specimens from other organs, systems and tissues (principal)
CPT/HCPCS: 82607; 82746; 84443; 85045

== ENCOUNTER 2024-01-21 20:46 | Outpatient (REF) | payer MEDICARE, SELFPAY ==
[2024-01-21 22:07] LABS: Abs Immature Grans 0.02 10^3/uL (0.0-0.06); Absolute Basophil Count 0.06 10^3/uL (0.0-0.2); Absolute Eosinophil Count 0.26 10^3/uL (0.0-0.7); Absolute Lymphocyte Count 1.71 10^3/uL (1.2-3.4); Absolute Monocyte Count 0.83 10^3/uL (0.1-0.8); Absolute Neutrophil Count 3.44 10^3/uL (1.2-6.7); Basophils % 0.9 %; Eosinophils % 4.1 %; HCT 46.9 % (36.0-46.0); HGB 14.5 g/dL (11.2-15.7); Immature Grans % 0.3 %; Lymphocytes % 27.1 %; MCH 31.4 pg (27.0-33.0); MCHC 30.9 % (32.0-36.0); MCV 102 fL (80-95); MPV 12.3 fL (8.0-11.0); Monocytes % 13.1 %; Neutrophils % 54.5 %; Platelet Count 214 10^3/uL (130-400); RBC 4.62 10^6/uL (3.93-5.22); RDW-SD 48.6 fL; WBC 6.32 10^3/uL (4.4-10.8)
[2024-01-21 22:39] LABS: Iron 82 ug/dL (50-170)
[2024-01-21 22:49] LABS: Ferritin 46 ng/mL (8-252)
== END 2024-01-21 20:47 | disposition home or self-care (01) ==
LOC: NCHCN 20:46
PROVIDERS: PCP Nurse Practitioner Family; Visit Provider Family Medicine
DX: D64.9 Anemia, unspecified (principal)
CPT/HCPCS: 82728; 83540; 85025

== ENCOUNTER 2025-01-17 17:36 | Outpatient (REF) | payer MEDICARE, SELFPAY ==
[2025-01-17 19:53] LABS: Abs Immature Grans 0.04 10^3/uL (0.0-0.06); HCT 50.4 % (36.0-46.0); HGB 16.0 g/dL (11.2-15.7); Immature Grans % 0.5 %; MCH 30.1 pg (27.0-33.0); MCHC 31.7 % (32.0-36.0); MCV 95 fL (80-95); RBC 5.32 10^6/uL (3.93-5.22); RDW 12.7 % (11.7-14.6); RDW-SD 44.8 fL; WBC 8.42 10^3/uL (4.4-10.8)
[2025-01-17 20:26] LABS: RBC Morphology Normal
[2025-01-17 20:31] LABS: Iron 78 ug/dL (50-170); Total Iron Binding Capacity 320 ug/dL (250-450); Transferrin Sat 24 % (15-50)
[2025-01-17 20:34] LABS: Anion Gap 8.6 mmol/L (3-11); BUN 11 mg/dL (7-18); CO2 34.4 mmol/L (21.0-32.0); Calcium 9.5 mg/dL (8.5-10.1); Chloride 98 mmol/L (98-107); Estimated GFR 44.91 (mL/min/1.73m2); Folate 10.6 ng/mL (8.6-20.0); Glucose 133 mg/dL (74-106); Magnesium 2.2 mg/dL (1.8-2.4); Potassium 3.6 mmol/L (3.5-5.1); Sodium 141 mmol/L (136-145); TSH 1.97 uIU/mL (0.36-3.74); Vitamin B12 641 pg/mL (193-986)
== END 2025-01-17 17:37 | disposition home or self-care (01) ==
LOC: NCHCN 17:36
PROVIDERS: PCP Family Medicine; Visit Provider Family Medicine
DX: R53.1 Weakness (principal)
CPT/HCPCS: 80048; 82607; 82746; 83540; 83550; 83735; 84443; 85025

== ENCOUNTER 2025-01-18 19:45 | Outpatient (REF) | payer MEDICARE, SELFPAY ==
[2025-01-18 21:01] LABS: Glucose Negative (Negative)
[2025-01-18 21:08] LABS: C & S Indicated? No
== END 2025-01-18 19:46 | disposition home or self-care (01) ==
LOC: NCHCN 19:45
PROVIDERS: PCP Family Medicine; Visit Provider Family Medicine
DX: R53.1 Weakness (principal)
CPT/HCPCS: 81003; 81015